=== PATIENT | female | born 1995 | race Caucasian/White ===

== ENCOUNTER 2019-02-11 09:43 | Emergency (ER) | payer BC, OTHER ==
[~2019-02-11] VITALS: Ht 160 cm; Wt 70.8 kg
[2019-02-11 10:08] LABS: CLARITY,URINE CLEAR (Clear); COLOR,URINE YELLOW (Yellow); GLUCOSE, URINE NEGATIVE (Neg); KETONES,URINE NEGATIVE (Neg); LEUKOCYTE ESTERASE ,URINE NEGATIVE (Neg); NITRITES, URINE NEGATIVE (Neg); OCCULT BLOOD,URINE NEGATIVE (Neg); PROTEIN,URINE NEGATIVE (Neg); UROBILINOGEN,URINE 0.2 E.U/dL (0.2-1.0)
[2019-02-11 10:09] LABS: URINE HCG NEGATIVE (NEG)
[2019-02-11 10:13] LABS: UA COLLECTION TYPE CLN CATCH MIDSTREAM
[2019-02-11 10:19] LABS: BASOPHILS # (AUTO) 0.1 X10'3 (0-0.2); BASOPHILS % (AUTO) 0.7 % (0-1); EOSINOPHILS # (AUTO) 0.1 X10'3 (0-0.9); EOSINOPHILS % (AUTO) 1.1 % (0-6); HEMATOCRIT 39.4 % (35.0-45.0); HEMOGLOBIN 13.6 g/dl (12.0-16.0); LYMPHOCYTES # (AUTO) 1.8 X10'3 (1.1-4.8); LYMPHOCYTES % (AUTO) 22.1 % (21-51); MEAN CORPUSCULAR HEMOGLOBIN 29.7 PG (27.0-31.0); MEAN CORPUSCULAR HGB CONC 34.4 g/dL (33.0-36.5); MEAN CORPUSCULAR VOLUME 86.4 FL (78-98); MEAN PLATELET VOLUME 7.3 FL (7.4-10.4); MONOCYTES # (AUTO) 0.5 X10'3 (0-0.9); MONOCYTES % (AUTO) 5.6 % (2-12); NEUTROPHILS # (AUTO) 5.7 X10'3 (1.8-7.7); NEUTROPHILS % (AUTO) 70.5 % (42-75); PLATELET COUNT 377 X10'3 (140-440); RED BLOOD COUNT 4.56 X10'6 (4.20-5.60); RED CELL DISTRIBUTION WIDTH 13.1 % (11.5-14.5); WHITE BLOOD COUNT 8.1 X10'3 (4.5-11.0)
[2019-02-11] MEDS ORDERED: polyethylene glycol 3350 17gm powd pack PO STA (10:29)
[2019-02-11] MEDS ORDERED: dicyclomine 10 MG capsule PO ONE (10:30)
[2019-02-11] MEDS ORDERED: ondansetron 4mg rapidly disintigrating tab PO ONE (10:40)
[2019-02-11] MEDS ORDERED: metoclopramide 5 mg/ml inj IV ONE (10:45)
[2019-02-11] MEDS ORDERED: diphenhydrAMINE 50 mg/ml inj IV ONE (10:45)
[2019-02-11 10:56] LABS: ALANINE AMINOTRANSFERASE 22 U/L (12-78); ALBUMIN 4.2 G/DL (3.4-5.0); ALBUMIN/GLOBULIN RATIO 1.1 (1.1-1.5); ALKALINE PHOSPHATASE 53 IU/L (46-116); ANION GAP 10 (8-16); ASPARTATE AMINO TRANSFERASE 14 U/L (10-37); BILIRUBIN,TOTAL 0.4 MG/DL (0.1-1.0); BLOOD UREA NITROGEN 7 MG/DL (7-18); BUN/CREATININE RATIO 7.6 (6.6-38.0); CALCIUM 9.1 MG/DL (8.5-10.1); CHLORIDE 105 MMOL/L (99-107); CREATININE 0.92 MG/DL (0.40-0.90); GLUCOSE 94 MG/DL (70-104); LIPASE 107 U/L (73-393); POTASSIUM 3.5 MMOL/L (3.5-5.1); SODIUM 142 MMOL/L (135-145); TOTAL CARBON DIOXIDE 26.7 MMOL/L (24-32); eGFR 77 ML/MIN
[2019-02-11] MEDS ORDERED: POLY17PO10 PO (12:14)
[2019-02-11] MEDS ORDERED: DICY10CA88 PO (12:14)
[2019-02-11] MEDS ORDERED: NA P133E4 RC (12:14)
[2019-02-11 12:43] VITALS: BP 94/50
== END 2019-02-11 12:46 | disposition home or self-care (01) ==
LOC: ER 09:44
DX: R10.33 Periumbilical pain (principal); R11.10 Vomiting, unspecified; K59.00 Constipation, unspecified; Z88.1 Allergy status to other antibiotic agents; Z79.899 Other long term (current) drug therapy
CPT/HCPCS: 36415; 74018; 80053; 81003; 81025; 83690; 85025; 85610; 96374; 96375; 99284; J1200; J2405; J2765